=== PATIENT | female | born 1940 | race Caucasian/White ===

== ENCOUNTER 2016-12-14 06:11 | Inpatient (IN) | payer OTHER, BC ==
[~2016-12-14] VITALS: Ht 157.5 cm; Wt 102.9 kg
[~2016-12-14 06:11] MED LIST: AUGMENTIN875 MG PO; CEFTIN500 MG PO; CENTRUM SILVER1 EAC3 PO; COMBIVENT RESPIM4 GM IH; CREAM TP; CYCLOBENZAPRINE10 MG PO; DIOVAN80 MG PO; DOCUSATE SODIU100 MG PO; ENDOCET 5-3251 EACH PO; FISH OIL300 MG PO; GLUCOPHAGE1000 MG PO; IRON325 MG PO; LIDOCAINE700 MG TD; NORTRIPTYLINE H50 MG PO; PERCOCET 5/31 TABLET PO; PRISTIQ50 MG PO; Remove Lidoderm Patch TD; XANAX0.5 MG PO
[2016-12-14 09:45] LABS: POINT-OF-CARE METER ID UU14174212
[2016-12-14] MEDS ORDERED: GLIMEPIRIDE2 MG PO (09:57)
[2016-12-14] MEDS ORDERED: COZAAR50 MG PO (09:59)
[2016-12-14 10:22] VITALS: BP 139/75
[2016-12-14 14:41] LABS: POINT-OF-CARE METER ID UU13113675
[2016-12-14 17:56] LABS: POINT-OF-CARE METER ID UU13113675; POINT-OF-CARE USER ID 515036437
[2016-12-14 18:08] VITALS: BP 151/70
[2016-12-14 20:26] VITALS: BP 150/74
[2016-12-14 22:08] LABS: POINT-OF-CARE METER ID UU14149397
[2016-12-14 23:50] VITALS: BP 148/76
[2016-12-15 04:10] VITALS: BP 135/63
[2016-12-15 06:54] LABS: HEMATOCRIT 38.6 % (36.0-46.0); MCV 94.1 FL (83-99)
[2016-12-15 07:13] LABS: ANION GAP 9 MEQ/L (2-14); CHLORIDE 101 MEQ/L (99-109); POTASSIUM 5.2 MEQ/L (3.7-5.4); SAMPLE HEMOLYSIS CHECK 0; SAMPLE ICTERIC CHECK 0; SAMPLE LIPEMIA CHECK 0; SODIUM 137 MEQ/L (136-147)
[2016-12-15 07:19] LABS: GFR ESTIMATE (CALCULATED) > 59 mL/min/; GLUCOSE 140 mg/dL (70-99); UREA NITROGEN (BUN) 11 mg/dL (9-23)
[2016-12-15 07:29] VITALS: BP 135/68
[2016-12-15 11:32] LABS: POINT-OF-CARE METER ID UU14149397
[2016-12-15 15:04] VITALS: BP 137/66
[2016-12-15 16:26] LABS: POINT-OF-CARE METER ID UU14188577
[2016-12-15 21:16] LABS: POINT-OF-CARE METER ID UU14149397
[2016-12-15 23:31] VITALS: BP 160/69
[2016-12-16 06:42] LABS: HEMATOCRIT 35.2 % (36.0-46.0); MCV 93.4 FL (83-99)
[2016-12-16 07:20] VITALS: BP 133/71
[2016-12-16] MEDS ORDERED: BENADRYL25 MG PO (10:12)
[2016-12-16] MEDS ORDERED: TYLENOL REGULA325 MG PO (10:13)
[2016-12-16] MEDS ORDERED: BISACODYL5 MG PO (10:14)
[2016-12-16] MEDS ORDERED: OXYCODONE HCL5 MG PO (10:15)
[2016-12-16] MEDS ORDERED: XARELTO10 MG PO (10:15)
[2016-12-16] MEDS ORDERED: CELECOXIB200 MG PO (10:15)
[2016-12-16 11:30] LABS: POINT-OF-CARE METER ID UU14188577
[2016-12-16 15:16] VITALS: BP 143/78
[2016-12-16 16:17] LABS: POINT-OF-CARE METER ID UU14188577
[2016-12-16 21:41] LABS: POINT-OF-CARE METER ID UU14149397
[2016-12-17 00:23] VITALS: BP 143/67
[2016-12-17 06:28] LABS: POINT-OF-CARE METER ID UU14149397
[2016-12-17 07:46] VITALS: BP 114/71
[2016-12-17 12:09] LABS: POINT-OF-CARE METER ID UU14149397
[2016-12-17 15:40] VITALS: BP 145/71
[2016-12-17 21:35] LABS: POINT-OF-CARE METER ID UU14188577
[2016-12-18 00:13] VITALS: BP 118/59
[2016-12-18 07:35] VITALS: BP 120/56
[2016-12-18 12:03] LABS: POINT-OF-CARE METER ID UU14188577
== END 2016-12-18 13:59 | DRG 470 ==
LOC: 2SOUTH 06:11 → 3EAST 09:06 → 2SOUTH 09:18 → 3EAST 17:38
PROVIDERS: Orthopaedic Surgery
PROC: 0SRC0J9 Replacement of Right Knee Joint with Synthetic Substitute, Cemented, Open Approach (ICD-10-PCS; principal; 2016-12-14)
DX: M17.11 Unilateral primary osteoarthritis, right knee (principal); M25.561 Pain in right knee; M21.161 Varus deformity, not elsewhere classified, right knee; I10 Essential (primary) hypertension; J44.9 Chronic obstructive pulmonary disease, unspecified; F32.9 Major depressive disorder, single episode, unspecified; F17.200 Nicotine dependence, unspecified, uncomplicated; H91.90 Unspecified hearing loss, unspecified ear; E11.9 Type 2 diabetes mellitus without complications
CPT/HCPCS: 36415; 71010; 80048; 82948; 85014; 85018; 85025 GA; 85651; 86140; 94640; 94799; 99202; C1713; J0131; J0690; J1170; J1815; J1885; J2250; J2405; J2795; J7030; J7050